=== PATIENT | male | born 1995 | race Caucasian/White ===

== ENCOUNTER 2025-02-16 08:38 | Emergency (ER) | payer BC, SELFPAY ==
[2025-02-16 08:52] VITALS: BP 136/69; PULSE 54; RESP 18; TEMP 36.8; O2SAT 99
--- NOTE | 2025-02-16 09:01 | ED_ITS ---
HPI - Wound/Laceration General Chief Complaint: Wound/Laceration Stated Complaint: cut on right thumb Time Seen by Provider: 02/16/25 09:01 Source: patient Mode of arrival: ambulatory Limitations: no limitations History of Present Illness HPI narrative: 30 yo M presents with c/o laceration to R thumb. Cut himself last night while cutting vegetables. Bleeding controlled. Works with his hands building power poles. Requesting glue or strips to close wound. All systems reviewed and negative except as noted above. Related Data Home Medications ?Medication ?Instructions ?Recorded ?Confirmed ?Last Taken ?Type No Home Medications 02/16/25 02/16/25 U nknown History Allergies Allergy/AdvReac Type Severity Reaction Status Date / Time No Known Allergies Allergy Verified 02/16/25 09:08 [facility] Comments At time of signature, agree with nursing past medical, surgical, social and family history. There is no relevant family history pertinent to the presenting complaint. Exam Narrative: GENERAL: This is a well-nourished, well-developed patient, in no apparent distress. HEAD: normocephalic, atraumatic. EYES: PERRL. Sclera clear/white. Vision is grossly intact. EARS: External ears normal NOSE: External nose normal NECK: Neck supple, non-tender without lymphadenopathy, masses or thyromegaly. CARDIOVASCULAR: Regular rate and rhythm without murmurs, gallops, or rubs. RESPIRATORY: Clear to auscultation. Breath sounds equal bilaterally. No wheezes, rales, or rhonchi. SKIN: warm, Dry, with no suspicious lesions or rash, good texture and turgor. 2cm laceration to R thumb, superficial, bleeding controlled NEURO: awake, alert, and oriented to person, place and time. There were no obvious focal neurologic abnormalities. EXTREMITIES: No joint tenderness, effusion, or edema noted. Course Course Level of Care: Express Care Visit Vital Signs Vital signs: Vital Signs Temperature 36.8 C 02/16/25 08:52 Pulse Rate 54 L 02/16/25 08:52 Respiratory Rate 18 02/16/25 08:52 Blood Pressure 136/69 02/16/25 08:52 Pulse Oximetry 99 02/16/25 08:52 Oxygen Delivery Room Air 02/16/25 08:52 Temperature 36.8 C 02/16/25 08:52 Pulse Rate 54 L 02/16/25 08:52 Respiratory Rate 18 02/16/25 08:52 Blood Pressure 136/69 02/16/25 08:52 Pulse Oximetry 99 02/16/25 08:52 Oxygen Delivery Room Air 02/16/25 08:52 Reviewed Procedures Laceration Laceration 1: Date: 02/16/25 Time: 09:10 Site: hand (R thumb) Side (If applicable): right Size (cm): 2 Description: linear ====== Skin Level ====== Skin layer closed with: dermabond and steri strips ====== Subcutaneous Layer ====== ====== Muscle Layer ====== ====== Tendon Layer ====== Dressing: laceration closed with steri strips and dermabond. did not require suture repair MDM - Wound/Laceration MDM Narrative Medical decision making narrative: laceration closed with Dermabond and Steri-Strips. Did not require suture repair. range of motion and neurovascularly intact. Patient educated on care for Steri-Strips and Dermabond. Will follow up with primary care physician as needed. Differential Diagnosis Differential diagnosis: Likely laceration Discharge Plan Discharge Clinical Impression: Laceration of right thumb Patient Disposition: Home Condition: Stable Instructions: Finger Laceration (ED), Skin Adhesive Care (ED), Skin Adhesive Strips (ED) Additional Instructions: Keep Dermabond and Steri-Strips dry. If they do become what, pat dry with towel. Keep in place for the next 5-7 days. Let them fall off on their own. Do not take carpal at Dermabond or Steri-Strips or you may reopen wound. If you have any signs of infection such as redness, swelling, drainage, pain follow-up with your primary care physician. Patient Language: Estonian Prescriptions: No Action No Home Medications Follow-up/Referrals: PHYSICIAN,NETWORK APPLICATIONS SPECIALIST [Primary Care Provider, Internal Medicine] Time of Disposition: 09:22
== END 2025-02-16 09:24 | disposition home or self-care (01) ==
PROVIDERS: Emergency Provider Nurse Practitioner Family
DX: S61.011A Laceration without foreign body of right thumb without damage to nail, initial encounter (principal); W45.8XXA Other foreign body or object entering through skin, initial encounter; Y93.G9 Activity, other involving cooking and grilling
CPT/HCPCS: 12001; 99202; G0463